=== PATIENT | male | born 1980 | race Caucasian/White ===

== ENCOUNTER → 2016-11-10 | Outpatient (CLI) | payer OTHER ==
--- NOTE | 2016-11-10 15:10 | RAD ---
Exam performed: 2 views left shoulder Indication:Chronic left shoulder pain since 2011, disability examination Date of service:11/10/16. Comparison:None available Findings : AP and Y-view of the shoulder are obtained. The osseous structures to be intact and well aligned. The joint space is well-preserved. The articular margins are smooth. Impression: No definite abnormality seen.
== END | disposition home or self-care (01) ==
LOC: RAD 10:00
PROVIDERS: ATTEND Family Medicine
DX: Z02.71 Encounter for disability determination (principal); G89.29 Other chronic pain; M25.512 Pain in left shoulder
CPT/HCPCS: 73030

== ENCOUNTER 2020-10-26 19:44 | Emergency (ER) | payer SELFPAY | END 2020-10-26 20:44 | disposition left against medical advice (07) | LOC: ER 19:44 | DX: S81.852A Open bite, left lower leg, initial encounter (principal); Z53.21 Procedure and treatment not carried out due to patient leaving prior to being seen by health care provider; W54.0XXA Bitten by dog, initial encounter; Y93.89 Activity, other specified; Y92.89 Other specified places as the place of occurrence of the external cause; Y99.8 Other external cause status ==